=== PATIENT | male | born 1990 | race African-American/Black ===

== ENCOUNTER 2020-10-13 09:51 | Emergency (ER) | payer SELFPAY ==
[~2020-10-13] VITALS: Ht 170.2 cm; Wt 68.0 kg
--- NOTE | 2020-10-13 10:25 | NUR ---
The patient walked into switchboard receptionist laughing/talking to self/unable to give information. The patient is placed in ER bed #15. Warm blanket provided. Will continue to monitor the patient.
--- NOTE | 2020-10-13 13:15 | NUR ---
Note brendameron in ED - 10/13/20 at 1546 by KEVIN The patient alert and oriented x3. Denies si/hi. Denies pain. Respiration regular and unlabored and denies SOB. Patient discharged in stable condition. Written and verbal after care instructions given. Patient verbalizes understanding of instruction but refused to sign despite papers despite explaining risks and benefits.
--- NOTE | 2020-10-13 13:16 | NUR ---
theatrical agent gallo called to evaluate for safe homeless discharge,admitting called to verify identity since patient is calm ambulating in hallway
--- NOTE | 2020-10-13 13:22 | NUR ---
RAKESH DASH AT BEDSIDE
--- NOTE | 2020-10-13 13:25 | NUR ---
"Chief Nurse Executive consult: emergency medical services coordinator consult requested for homelessness. Patient is a 29-year-old, male. SW met with patient at his bedside in the emergency department. Patient is alert and oriented x2, time, situation, and place. Patient was only able to recall his first name and stated, Jelani. Patient seemed to be responding to internal stimuli, but SW was able to redirect him. Per chart, patient presented to emergency department on 10/13/20 with complaints of ankle and foot pain. Patient stated that he is currently homeless and reported that he has been to shelters. Patient stated that he has been homeless for three to five years. Patient stated that he currently has no source of income. Patient stated that he is currently using substances but did not want to provide SW with further information. SW assessed patients history of mental illness and patient stated that he has a history of PTSD and Schizophrenia. Patient stated that he takes Prozac and Lexapro. Patient denied suicidal or homicidal ideation. SW offered the patient homeless and substance use resources. Patient accepted the resources and thanked SW. Patient signed the homeless waiver and SW filed waiver in the patients chart. Patient plans to return to his prior living arrangement on the streets and stated that he can use public transportation. PLAN: Patient will return to his prior living arrangement on the streets. No further SS intervention at this time, however, SW will remain available as needed. Substance use resources provided included: [facility] Substance Abuse Self-Helpline ([facility]) ; [facility] [address] [place] [address] ; [facility] [address] [facility] [address] ; [facility] [address] [facility] [address] ; [facility] [address] [facility] [address] ; [facility] [address] [facility] [address] ; [facility]; [facility] [place]; [place] [facility] [place]; Alcoholics Anonymous -SFV Year-round shelters: [place] [address] [place] [address] ; [facility] [place] [address] [place] [address]; [facility] [address] [facility] [address] SPA 4 | [facility] Recreation [place] Provider: First to Serve Address: [address], [address] # of Beds: 48 Population Served: [facility] Provider: First to Serve Address: [address] [facility], [address] # of Beds: 73 Population Served: [facility] 6 | [facility] Provider: Home at Last Address: [address] [facility], [address] # of Beds: 63 Population Served: [facility] 3 | [facility] Provider: [place] Address: [address] [address] # of Beds: 75 Population Served: [facility] 8 | [facility] Provider: [place] Address: [address] [facility] [address] # of Beds: 80 Population Served: [facility] 1 | [facility] Provider: [place] Address: [address] [address] [facility], [address] # of Beds: 85 Population Served: [facility] 2 | [facility] Provider: [place] [facility] Address: Confidential (please call for location) # of Beds: 52 Population Served: [facility] 4 | [facility] Provider: [facility] Address: [address] [facility], [address] # of Beds: 49 Population Served: [facility] Provider: First To Serve Address: [address] [facility] [place], [facility] # of Beds: 27 Population Served: [facility]: [facility]: [address] [place] ; [facility] [address] [facility] ; [facility] [address] [facility] . Food Resources: [place] [facility] at [facility]- [address] [place]; Meet Each Need with [facility] ([facility]) [address] [facility]; [facility] [address] [facility]; [facility] [address] [facility]. Mental Health resources provided: [facility] [address] [place], [place] [address] ; [facility] [address] [facility] [address], [place], [place] [phone] ; [facility] [address] [facility] [place], [place] [id number] ; [facility] [address] [place], [place] [phone] Healthcare Clinics: [facility] [address] [facility], [address] [place]. [place] ; [facility] [address] [facility] [address] [place] [address]; [facility] [address] [facility] [place] [phone] Counseling--Outpatient [facility] [address], [place] [address] (Specializes in in-depth psychotherapy for emotional distress: anxiety, depression, interpersonal conflicts, life transitions, childhood abuse) PSYCHIATRIC OUTPATIENT SERVICES [facility] Partial Hospitalization and Intensive Outpatient Program (Managed Care and [place] Only) [address] [facility]. [facility] [address] [facility] Partial Hospitalization and Outpatient Program [address] [place], [place] [phone] [facility] Partial Hospitalization and Outpatient Program [address] [place], [place] [id number] [facility] Mental [facility] [address] [place] [address] [facility] Partial Hospitalization and Outpatient Program [address] [place], [place] [phone] "
--- NOTE | 2020-10-13 13:30 | NUR ---
The patient alert and oriented x3. Denies si/hi. Denies pain. Respiration regular and unlabored and denies SOB. Patient discharged in stable condition. Written and verbal after care instructions given. Patient verbalizes understanding of instruction but refused to sign despite papers despite explaining risks and benefits.
[2020-10-13 15:48] VITALS: BP 127/75
== END 2020-10-13 13:40 | disposition home or self-care (01) ==
LOC: ER 09:56 → EDBD 09:56 → ER 13:40
DX: S99.811A Other specified injuries of right ankle, initial encounter (principal); F29 Unspecified psychosis not due to a substance or known physiological condition; Z59.0 Homelessness; X58.XXXA Exposure to other specified factors, initial encounter; Y93.89 Activity, other specified; Y92.89 Other specified places as the place of occurrence of the external cause; Y99.8 Other external cause status
CPT/HCPCS: 73590-TC; 73610-TC